=== PATIENT | female | born 1990 | race African-American/Black ===

== ENCOUNTER 2022-01-22 13:32 | Emergency (ER) | payer SELFPAY ==
[2022-01-22] MEDS ORDERED: Sodium Chloride 0.9% 2,000 ML ONE (14:25)
[2022-01-22] MEDS ORDERED: Morphine 4 MG/ML VIAL ONE (14:25)
[2022-01-22] MEDS ORDERED: Promethazine HCl 25 MG/ML VIAL ONE (14:25)
[2022-01-22 14:46] LABS: BHCG - Serum Negative (NEGATIVE); Pregs Control Background? CLEAR/WHITE (CLR/WHITE); Pregs Control Bar Appear? YES (CONTROL BAR)
[2022-01-22 14:52] LABS: ALT (SGPT) 30 U/L (8-55); AST (SGOT) 61 U/L (5-34); Albumin 4.5 g/dL (3.5-5.0); Alkaline Phosphatase 59 U/L (40-110); Anion Gap 20 mmol/L (10-20); BUN (Urea Nitrogen) 4 mg/dL (7.0-18.7); Bilirubin, Total 3.9 mg/dL (0.2-1.2); Calc. Creatinine Clearance 0 mL/min (70-130); Calcium 9.5 mg/dL (7.8-10.44); Carbon Dioxide 24 mmol/L (22-29); Chloride 102 mmol/L (98-107); Globulin 3.7 g/dL (2.4-3.5); Glucose 74 mg/dL (70-105); Potassium 4.5 mmol/L (3.5-5.1); Protein, Total 8.2 g/dL (6.0-8.3); Sodium 141 mmol/L (136-145)
[2022-01-22 14:59] LABS: Hemoglobin 8.5 g/dL (12.0-16.0); Mean Corpuscular HGB CONC 35.3 g/dL (32.0-36.0); Mean Corpuscular Hemoglobin 34.6 pg (27.0-31.0); Mean Platelet Volume 8.7 fL (7.4-10.4); Platelet Count 412 thou/uL (130-400); RBC Distribution Width 16.5 % (11.5-14.5); Red Blood Cell (RBC) Count 2.46 mill/uL (4.20-5.40)
[2022-01-22 15:02] LABS: Manual Diff?? YES
[2022-01-22 15:03] LABS: Anisocytosis SLIGHT = 6-15 cells (100X) (0-5/hpf); Band 2 % (5-11); Lymphocytes 19 % (21-51); MDiff Complete? YES; Monocytes 7 % (0-10); Neutrophil 72 % (42-75); Poikilocytosis MODERATE=16-30 cells (100X) (0-5/hpf)
[2022-01-22 15:04] LABS: Sickle Cells MODERATE= 6-15 cells (100X) (None Seen)
[2022-01-22 15:05] LABS: Platelet Morphology Comment Appears Adequate; White Blood Cell (WBC) Count 27.1 thou/uL (4.8-10.8)
[2022-01-22 15:59] LABS: Bilirubin Negative (Negative); Blood, Urine Moderate (Negative); Clarity Clear (Clear); Glucose, Urine (Dipstick) Negative (Negative); Ketone, Urine Negative (Negative); Leukocyte Negative (Negative); Nitrite Negative (Negative); Protein, Urine (Dipstick) 30 mg/dL (Neg-Trace); Specific Gravity, Urine 1.015 (1.005-1.030); Urobilinogen > or = 8.0 mg/dL (Less than 2); pH, Urine 8.5 (5.0-9.0)
[2022-01-22 16:13] LABS: Bacteria/HPF Rare-Few HPF (None Seen); Mucous/LPF Few LPF (<2+); Squamous Epithelial 0-3 HPF (0-3); WBC/HPF 0-3 HPF (0-3)
[2022-01-22 22:49] LABS: Reticulocyte Count 8.4 % (0.5-1.5)
== END 2022-01-22 16:27 | disposition home or self-care (01) ==
LOC: MADERS 13:32
DX: D57.00 Hb-SS disease with crisis, unspecified (principal)
CPT/HCPCS: 80053; 81003; 81015; 84703; 85025; 85046; 96365; 96366; 96375; J2270; J2550; J7050